=== PATIENT | female | born 1955 | race Caucasian/White ===

== ENCOUNTER 2022-12-10 08:55 | Day surgery (SDC) | payer OTHER ==
[2022-12-05 10:57] VITALS: BMI 42.7
[2022-12-10 11:48] VITALS: RESP 16; TEMP 97.7
[2022-12-10 12:14] VITALS: BP 136/49; PULSE 73
== END 2022-12-10 12:14 | disposition home or self-care (01) ==
LOC: FASU-ENDO 08:55
PROVIDERS: ATTEND Internal Medicine Gastroenterology
PROC: 0DJD8ZZ Inspection of Lower Intestinal Tract, Via Natural or Artificial Opening Endoscopic (ICD-10-PCS; principal; 2022-12-10 11:24)
DX: Z12.11 Encounter for screening for malignant neoplasm of colon (principal); K64.1 Second degree hemorrhoids
CPT/HCPCS: 82962

== ENCOUNTER 2023-07-22 11:17 | Day surgery (SDC) | payer OTHER ==
[2023-07-16 12:24] VITALS: BMI 42.5
[2023-07-22 12:33] VITALS: RESP 16; TEMP 94
[2023-07-22 12:48] VITALS: BP 139/83; PULSE 63
== END 2023-07-22 12:52 | disposition home or self-care (01) ==
LOC: FASU-ENDO 11:17
PROVIDERS: ATTEND Internal Medicine Gastroenterology
PROC: 0DB68ZX Excision of Stomach, Via Natural or Artificial Opening Endoscopic, Diagnostic (ICD-10-PCS; principal; 2023-07-22 12:09)
DX: K29.50 Unspecified chronic gastritis without bleeding (principal)
CPT/HCPCS: 82962